=== PATIENT | male | born 2000 | race Caucasian/White ===

== ENCOUNTER 2023-09-05 01:15 | Emergency (ER) | payer BC ==
[~2023-09-05] VITALS: Ht 182.9 cm; Wt 104.5 kg
[2023-09-05 01:24] VITALS: TEMP 98.6
[2023-09-05 02:20] VITALS: BP 119/71; PULSE 80
== END 2023-09-05 02:21 | disposition home or self-care (01) ==
LOC: COL.ER 01:15
DX: S01.511A Laceration without foreign body of lip, initial encounter (principal); W18.30XA Fall on same level, unspecified, initial encounter; W22.8XXA Striking against or struck by other objects, initial encounter; Y93.72 Activity, wrestling